=== PATIENT | male | born 1990 | race Caucasian/White ===

== ENCOUNTER 2017-05-30 16:05 | Emergency (ER) | payer OTHER ==
[~2017-05-30] VITALS: Ht 180.3 cm; Wt 97.5 kg
--- NOTE | 2017-05-30 16:44 | ER Report ---
History and Physical Time Seen By MD: 16:10 Hx. of Stated Complaint: RIGHT KNEE INJURY WHILE SKIING. HPI/ROS CHIEF COMPLAINT: Right knee injury HISTORY OF PRESENT ILLNESS: Patient is a 27-year-old male who presents the ED with complaint of right knee injury that occurred about 3 hours ago. He states that he was skiing and twisted his right knee. He states that he felt a pop and now is pain primarily on the lateral aspect of his knee. He has noted some slight swelling. He has not taken any medication but has been applying ice. He denies any previous knee injury. REVIEW OF SYSTEMS: Respiratory: No cough, no dyspnea. Cardiovascular: No chest pain, no palpitations. Gastrointestinal: No vomiting, no abdominal pain. Musculoskeletal: See history of present illness. Allergies: Coded Allergies: No Known Drug Allergies (Unverified , 05/30/17) Home Meds No Active Prescriptions or Reported Meds Reviewed Nurses Notes: Yes Old Medical Records Reviewed: Yes Hx Alcohol Use: No Constitutional Vital Sign - Last 24 Hours 05/30/17 16:10 Temp 99.0 Pulse 126 Resp 12 B/P (MAP) 136/82 Pulse Ox 92 O2 Delivery Room Air Physical Exam General Appearance: The patient is alert, has no immediate need for airway protection and no current signs of toxicity. Patient appears to be in no acute distress. Respiratory: Chest is non tender, lungs are clear to auscultation. Cardiac: regular rate and rhythm Musculoskeletal: Neck: Neck is supple and non tender. There is pain with palpation on the lateral aspect of the right knee. Minimal swelling is present. No ecchymosis appreciated. Full range of motion with some pain. Negative anterior and posterior drawer sign. Pain with varus and valgus stress test. Some pain with Jumana's exam. Patient deep pulses are 2+ with normal capillary refill. Normal sensation. Skin: No rashes or lesions. DIFFERENTIAL DIAGNOSIS: After history and physical exam differential diagnosis was considered for right knee pain including ligamentous injury, meniscal injury , fracture,strain. Medical Decision Making EKG/Imaging Imaging Right Knee Xrays: IMPRESSION: 1. Small avulsive fracture fragment adjacent to the lateral margin of the lateral tibial plateau, compatible with a Segond fracture. This type of fracture has a strong association with ligamentous injuries in the knee including possible ACL injury. A follow-up nonemergent knee MRI is recommended for further evaluation. 2. No additional fracture or dislocation. 3. Right knee joint effusion. Report Dictated By: Juan Larson MD at 05/30/2017 4:55 PM Report E-Signed By: Juan Larson MD at 05/30/2017 5:02 PM ED Course/Re-evaluation ED Course Will obtain right knee x-rays. 05/30/2017 5:05:24 pm - discussed x-ray results with patient. Appears a does have a avulsion type fracture of the lateral tibial plateau (Segond fx) which more than likely will be associated with anterior cruciate ligament tear. He will need close follow-up with orthopedic surgery and likely subsequent MRI. He does have crutches with him and we'll place him in a knee immobilizer. Decision to Disposition Date: May 30, 2017 Decision to Disposition Time: 17:09 Depart Departure Latest Vital Signs Vital Signs Date Time Temp Pulse Resp B/P (MAP) Pulse Ox O2 Delivery O2 Flow Rate FiO2 05/30/17 16:10 99.0 126 12 136/82 92 Room Air Impression: Primary Impression: Closed fracture of lateral portion of right tibial plateau Condition: Improved Disposition: HOME OR SELF-CARE New Scripts No Active Prescriptions or Reported Meds Patient Instructions: ACL Injury (DC), Crutch Instructions (ED), Knee Immobilizer (ED) Additional Instructions: Rest, ice, elevate. Use crutches and knee immobilizer. May take a Tylenol or ibuprofen pain relief. Follow-up with orthopedic surgery in 2-3 days. If having worsening or concerning symptoms may return to the emergency department. Problem Qualifiers Primary Impression: Closed fracture of lateral portion of right tibial plateau Encounter type: initial encounter Qualified Codes: S82.121A - Displaced fracture of lateral condyle of right tibia, initial encounter for closed fracture TIN BEEBE PA-C May 30, 2017 16:44
--- NOTE | 2017-05-30 17:06 | RADIOLOGY IMAGING REPORT ---
FACILITY: [facility] PATIENT NAME: Bg Zhang : 1990 MR: [id number] V: [id number] EXAM DATE: ORDERING PHYSICIAN: TIN BEEBE TECHNOLOGIST: Location: [facility] [place] Patient: Bg Zhang : 1990 Visit/Account:[id number] Date of Sevice: 05/30/2017 EXAMINATION: Right knee 4 views HISTORY: Right knee injury. Lateral pain. COMPARISON: None. FINDINGS: On the AP view there is a small avulsive fracture fragment adjacent to the lateral margin of the late ral tibial plateau, compatible with a Segond fracture. No additional fracture visualized about the right knee. Normal alignment. Joint spaces are preserved. Normal mineralization. There is a right knee joint effusion extending along the suprapatellar bursa. IMPRESSION: 1. Small avulsive fracture fragment adjacent to the lateral margin of the lateral tibial plateau, com patible with a Segond fracture. This type of fracture has a strong association with ligamentous injur ies in the knee including possible ACL injury. A follow-up nonemergent knee MRI is recommended for fu rther evaluation. 2. No additional fracture or dislocation. 3. Right knee joint effusion. Report Dictated By: Juan Larson MD at 05/30/2017 4:55 PM Report E-Signed By: Juan Larson MD at 05/30/2017 5:02 PM WSN:[id number]
[2017-05-30 17:27] VITALS: BP 107/71
== END 2017-05-30 17:28 | disposition home or self-care (01) ==
LOC: ER 16:10
DX: S82.121A Displaced fracture of lateral condyle of right tibia, initial encounter for closed fracture (principal); M25.461 Effusion, right knee; X50.1XXA Overexertion from prolonged static or awkward postures, initial encounter; Y93.23 Activity, snow (alpine) (downhill) skiing, snowboarding, sledding, tobogganing and snow tubing
CPT/HCPCS: 73564; 99283; L1830